=== PATIENT | female | born 1980 | race Two or more races ===

== ENCOUNTER 2020-10-28 05:50 | Day surgery (SDC) | payer OTHER ==
[2020-10-28] MEDS ORDERED: NEXIUM 24HR20 MG PO (09:01)
== END 2020-10-28 10:40 | disposition home or self-care (01) ==
LOC: AMB-ENDOS 05:50
PROVIDERS: ATTEND Surgery
DX: D13.0 Benign neoplasm of esophagus (principal); K44.9 Diaphragmatic hernia without obstruction or gangrene; Z20.822 Contact with and (suspected) exposure to COVID-19